=== PATIENT | male | born 1945 | race Caucasian/White ===

== ENCOUNTER → 2024-11-14 11:48 | Outpatient (REF) | payer MEDICARE, SELFPAY | LOC: HWRAD 11:48 | PROVIDERS: ATTENDING PHYSICIAN Psychiatry & Neurology Neurology; FAMILY PHYSICIAN Internal Medicine | DX: M25.562 Pain in left knee (principal) | CPT/HCPCS: 73560 ==

== ENCOUNTER → 2024-12-05 10:48 | Outpatient (REF) | payer MEDICARE, SELFPAY | LOC: HWRAD 10:48 | PROVIDERS: ATTENDING PHYSICIAN Family Medicine | DX: M79.605 Pain in left leg (principal) | CPT/HCPCS: 73564; 73590; 73610 ==